=== PATIENT | male | born 1980 | race Caucasian/White ===

== ENCOUNTER 2021-05-03 08:58 | Outpatient (REF) | payer OTHER, SELFPAY ==
[2021-05-03 09:19] LABS: MANUAL DIFF FLAG NO
[2021-05-03 10:03] LABS: Basophils Percent Auto 0.4 % (0-2); Eosinophils Absolute Auto 0.2 X10*3/uL (0.0-0.4); Hematocrit 47.7 % (42.0-52.0); Hemoglobin 15.4 g/dl (14.0-18.0); Imm Gran Abs Auto 0.02 X10*3/uL (0.00-0.03); Imm Gran Pct Auto 0.4 % (0.0-0.4); Lymphocytes Absolute Auto 1.4 X10*3/uL (1.2-4.9); Lymphocytes Percent Auto 30.3 % (20-40); Mean Corpuscular HGB Conc 32.3 g/dl (31.0-36.0); Mean Corpuscular Hemoglobin 28.3 pg (27.0-33.0); Mean Corpuscular Volume 87.7 fL (80.0-98.0); Mean Platelet Volume 8.6 fL (9.4-12.4); Monocytes Absolute Auto 0.4 X10*3/uL (0.1-1.2); Monocytes Percent Auto 8.5 % (2-11); Neutrophils Absolute Auto 2.5 x10*3/uL (2.0-8.3); Neutrophils Percent Auto 55.4 % (45-73); Platelet Count 223 X10*3/uL (160-400); Red Blood Count 5.44 X10*6/uL (4.60-5.80); Red Cell Distribution Width 12.8 % (11.0-16.0); White Blood Count 4.6 X10*3/uL (4.8-10.8)
[2021-05-03 10:28] LABS: Alanine Aminotransferase 33 U/L (0-40); Albumin Level 4.4 g/dL (3.5-5.0); Alkaline Phosphatase 67 U/L (39-117); Anion Gap 9 (12-20); Aspartate Amino Transferase 15 U/L (5-37); Bilirubin Total 1.2 mg/dL (0.0-1.0); Blood Urea Nitrogen 9 mg/dL (9-16); Calcium 9.7 mg/dL (8.4-10.2); Carbon Dioxide 30 mmol/L (22-29); Chloride 106 mmol/L (96-108); Cholesterol 156 mg/dL; Estimated Glomerular Filt Rate > 60; Glucose Random 91 mg/dL (60-115); HDL Cholesterol 37 mg/dL; LDL Cholesterol Calculated 102 mg/dl; Potassium 4.3 mmol/L (3.3-5.1); Sodium 141 mmol/L (135-145); Total Protein 7.2 g/dL (6.5-8.0); Triglycerides 89 mg/dL
[2021-05-03 10:46] LABS: Thyroid Stimulating Hormone 1.44 uIU/mL (0.32-4.0); Vitamin D 25-OH Total 15.9 ng/mL (>30)
== END 2021-05-03 08:59 | disposition home or self-care (01) ==
LOC: HO.LAB 08:58
PROVIDERS: PCP Internal Medicine; Visit Provider Internal Medicine
DX: Z00.00 Encounter for general adult medical examination without abnormal findings (principal); Z13.29 Encounter for screening for other suspected endocrine disorder; Z13.220 Encounter for screening for lipoid disorders
CPT/HCPCS: 36415; 80053; 80061; 82306; 84443; 85025

== ENCOUNTER 2022-08-23 08:29 | Emergency (ER) | payer OTHER, SELFPAY ==
--- NOTE | ~2022-08-23 | CT_ITS ---
EXAMINATION: CT ABDOMEN AND PELVIS WITH CONTRAST CLINICAL INFORMATION: Left lower quadrant pain COMPARISON: None available. TECHNIQUE: Multidetector volumetric images were obtained from the superior aspect of the liver through the pubic symphysis following administration 85 mL of Omnipaque 350 intravenous contrast. Sagittal and coronal reformatted images were obtained on the technologist's workstation. Oral contrast: Yes This CT examination was performed using dose optimization techniques as appropriate, variously including the following: *Automated exposure control *Adjustment of mA and/or kV according to patient size (this includes techniques or standardized protocols for targeted exams where dose is matched to indication/reason for exam; i.e. extremities or head) *Use of iterative reconstruction technique DLP: 506 mGy-cm FINDINGS: LUNG BASES: The visualized lung bases are unremarkable. LIVER, GALLBLADDER, AND BILIARY TREE: The liver is normal in size, shape, and attenuation. No focal hepatic lesion or biliary ductal dilatation is present. The gallbladder is unremarkable with no evidence of radiopaque gallstones, gallbladder wall thickening, or obvious pericholecystic inflammatory changes. PANCREAS: Unremarkable. SPLEEN: Unremarkable. ADRENAL GLANDS: Unremarkable. KIDNEYS AND URETERS: Left hydronephrosis and ureteral dilatation from a 4 mm left distal ureteral stone. There is some stranding of the left perinephric fat probably due to obstruction/backflow of urine. Differential would include infection. There is a 3 mm stone in the upper pole and a 1 mm stone in the lower pole of the right kidney. BLADDER: Unremarkable. GASTROINTESTINAL TRACT: Mild diverticulosis of the colon. No evidence of diverticulitis. The small and large bowel are otherwise unremarkable. The appendix is unremarkable. ABDOMINAL WALL: Small umbilical and supraumbilical hernias containing fat. LYMPH NODES: Normal. VASCULAR: Unremarkable. PELVIC VISCERA: Unremarkable. OSSEOUS STRUCTURES: Unremarkable. CT/CT abdomen pelvis w IV con IMPRESSION: Mild to moderate left hydronephrosis and ureteral dilatation from a 4 mm left distal ureteral stone. There is stranding of the left perinephric fat. This may be secondary to obstruction/backflow of urine. Differential would include infection. Clinical correlation recommended. Small nonobstructing right renal stones. Fleischner guidelines were followed.
[2022-08-23 08:37] VITALS: BP 150/90; PULSE 70; RESP 20; TEMP 36.6; O2SAT 99; BMI 25.5
--- NOTE | 2022-08-23 08:45 | ED.ABDPAIN ---
HPI - Abdominal Pain General Chief Complaint: Abdominal Pain Stated Complaint: Stomach Pain Vomiting Time Seen by Provider: 08/23/22 08:32 Source: patient and family Mode of arrival: ambulatory Limitations: no limitations History of Present Illness HPI narrative: 42 yo male with no significant medial history presents to the ER for evaluation acute onset of severe left lower quadrant abdominal pain along with nausea and vomiting that started at 05:30 this morning. He states the pain woke him up out of sleep. He states he has been having an upset stomach this week, taking Pepcid and Pepto-Bismol. The pain has not been as severe as it is today. He has never had pain like this before. He states he had a normal BM today, although smaller than normal. No diarrhea. He had some BRBPR 3 days ago with wiping. No history of GIB in the last. No hx hemorrhoids. MD elicited complaint: abdominal pain Pertinent past history: none Onset (ago): hour(s) (4) Pain Consistency: constant Location: LLQ Severity: severe Pain scale (0-10): 10 Quality: stabbing and sharp Radiation: none Migration to: no migration Exacerbating factors: nothing Relieving factors: nothing Associated symptoms: nausea, vomiting and chills Related Data Previous Rx's Medication Instructions Recorded ibuprofen 600 mg tablet 600 mg PO Q8H PRN pain #20 tabs 08/23/22 ondansetron 4 mg disintegrating 4 mg PO Q8H PRN nausea and 08/23/22 tablet vomiting #10 tabs oxycodone 5 mg tablet 5 mg PO Q6H PRN severe pain (scale 08/23/22 score 7-10) #8 tabs prednisone 20 mg tablet 40 mg PO DAILY #6 tabs 08/23/22 tamsulosin 0.4 mg capsule (Flomax) 0.4 mg PO BEDTIME #14 caps 08/23/22 Allergies Allergy/AdvReac Type Severity Reaction Status Date / Time No Known Allergies Allergy Verified 08/23/22 08:40 Review of Systems Review of Systems Yes all other systems are reviewed and are negative [facility] Past Medical History Medical History (Updated 08/23/22 @ 10:55 by EDMUND Kebede) Asthma Kidney stones Social History Social History Alcohol intake: former Smoked in Last 30 Days: No Use of substances other than those prescribed or required for medical reasons: Yes Substance Use Type: Marijuana Advance Directives: No Advance Directives Information Provided: Yes Physical Exam ED Vital Signs: Vital Signs - 24 hr 08/23/22 08:37 08/23/22 11:17 Temperature 97.9 F Pulse Rate 70 87 Respiratory Rate 20 18 Blood Pressure 150/90 H 128/82 Pulse Oximetry 99 97 Oxygen Delivery Method Room Air Room Air BMI result Body Mass Index 25.5 Appearance: Alert. Oriented X3. Hunched over in pain, pale Head: normocephalic, atraumatic. Eyes: Pupils equal, round and reactive to light. ENT: Pharynx normal. No tonsillar swelling or exudate. Neck: Normal inspection. Neck supple. CVS: Normal heart rate and rhythm. Pulses normal. Respiratory: No respiratory distress. Breath sounds normal. Abdomen: Soft but has LLQ tenderness with guarding, normal active BS x4. Rectal deferred Skin: Skin warm and dry. Normal skin color. Normal skin turgor. No rashes. Extremities: No lower extremity edema. No joint swelling. Neuro/psych: Oriented X 3. No motor deficit. No sensory deficit. CN II-XII intact. Normal speech and cognition. Course Reevaluation(s) Reevaluation #1: Abdominal pain significantly improved with morphine and Dilaudid. Patient stated 0/10. Mild discomfort to palpation at LLQ Time: 10:35 Medical Decision Making Medical Decision Making [facility] Narrative: 42 yo male presenting with acute onset of severe LLQ pain that started this morning. He is vomiting on arrival, pale and in severe pain. Concern for diverticulitis, perforation vs stone initially very extreme tenderness. Labs were unremarkable. CT scan showed a 4mm distal ureteral stone with mild-moderate hydro. His pain is resolved after 2 doses of IV opiates. He does report history of kidney stone several years ago, does not have a Urologist. Will plan to start pain control, flomax, steroids and have him follow up with urology as an outpatient. patient agrees w/ plan, return precautions discussed. stable for d/c home. Differential Diagnosis Differential Diagnoses: The differential diagnosis associated with the presentation includes diverticulitis, abscess, bowel perforation, kidney stone, pyelonephritis, UTI, ischemic colitis Lab Data [facility] Lab Attestation statement: I reviewed the patient's lab results. normal kidnye function, no leukocytosis 08/23/22 08:51 08/23/22 08:51 Labs: Lab Results 08/23/22 08/23/22 08/23/22 Range/Units 08:51 08:51 11:18 WBC 7.8 (4.8-10.8) X10*3/uL RBC 5.34 (4.60-5.80) X10*6/uL Hgb 15.5 (14.0-18.0) g/dl Hct 45.2 (42.0-52.0) % MCV 84.6 (80.0-98.0) fL MCH 29.0 (27.0-33.0) pg MCHC 34.3 (31.0-36.0) g/dl RDW 12.6 (11.0-16.0) % Plt Count 208 (160-400) X10*3/uL MPV 8.3 L (9.4-12.4) fL Immature Gran % (Auto) 0.4 (0.0-0.4) % Neut % (Auto) 78.9 H (45-73) % Lymph % (Auto) 13.0 L (20-40) % [place] % (Auto) 5.5 (2-11) % Eos % (Auto) 1.7 (0-4) % Baso % (Auto) 0.5 (0-2) % Lymph # (Auto) 1.0 L (1.2-4.9) X10*3/uL [place] # (Auto) 0.4 (0.1-1.2) X10*3/uL Eos # (Auto) 0.1 (0.0-0.4) X10*3/uL Baso # (Auto) 0.0 (0.0-0.2) X10*3/uL Abs Immat Gran (auto) 0.03 (0.00-0.03) X10*3/uL Absolute Neuts (auto) 6.1 (2.0-8.3) x10*3/uL Absolute Nucleated RBC 0.000 (0.0-0.012) X10*3/uL Nucleated RBC % (auto) 0.0 (0.0-0.2) /100WBC Sodium 140 (135-145) mmol/L Potassium 4.2 (3.3-5.1) mmol/L Chloride 106 (96-108) mmol/L Carbon Dioxide 27 (22-29) mmol/L Anion Gap 11 L (12-20) BUN 13 (9-16) mg/dL Creatinine 1.06 (0.5-1.4) mg/dL Estim Creat Clear Calc 90.7 Estimated GFR > 60 Random Glucose 130 H (60-115) mg/dL Calcium 9.4 (8.4-10.2) mg/dL Magnesium 2.1 (1.6-2.6) mg/dL Total Bilirubin 0.8 (0.0-1.0) mg/dL Direct Bilirubin 0.2 (0.0-0.5) mg/dL AST 14 (5-37) U/L ALT 23 (0-40) U/L Alkaline Phosphatase 51 (39-117) U/L Total Protein 6.7 (6.5-8.0) g/dL Albumin 4.3 (3.5-5.0) g/dL Lipase 24 (8-78) U/L Urine Color Yellow Urine Appearance Clear Urine pH 7.5 (5.0-9.0) Ur Specific [place] >= 1.030 H (1.005-1.025) Urine Protein Negative (Neg-Trace) mg/dL Urine Glucose (UA) Negative (Negative) mg/dL Urine Ketones Negative (Negative) mg/dL Urine Blood Moderate (2+) H (Negative) Urine Nitrite Negative (Negative) Ur Leukocyte Esterase Negative (Negative) Independent Interpretation I performed an independent interpretation of an: CT Scan Interpretation: CT scan with a distal ureteral stone, moderate hydronephrosis. Radiology Impression Discussion of test interpretation with radiology: I have reviewed the radiologist's reading. Radiologist Impression: CT/CT abdomen pelvis w IV con IMPRESSION: Mild to moderate left hydronephrosis and ureteral dilatation from a 4 mm left distal ureteral stone. There is stranding of the left perinephric fat. This may be secondary to obstruction/backflow of urine. Differential would include infection. Clinical correlation recommended. Small nonobstructing right renal stones. Independent Historian Clinical information obtained from an independent historian. History obtained from or confirmed by: Spouse Prescription Management I considered prescription management with: Pain Medication Medications Administered Discontinued Medications Generic Name Dose Route Start Last Admin Trade Name Freq PRN Reason Stop Dose Admin Hydromorphone HCl 1 mg 08/23/22 09:23 08/23/22 09:34 Hydromorphone Hcl 1 Mg/Ml Syringe IVPUSH 08/23/22 09:24 1 mg ONCE ONE Administration Protocol Sodium Chloride 1,000 mls @ 999 mls/hr 08/23/22 08:45 08/23/22 11:22 Ns IVCONT 08/23/22 09:45 Infused .Q1H1M NOHELIA Infusion Iohexol 85 ml 08/23/22 09:58 08/23/22 09:59 Iohexol 350 Mg/Ml 100 Ml Infus..Btl IV 08/23/22 09:59 85 ml ONCE ONE Administration Morphine Sulfate 4 mg 08/23/22 08:42 08/23/22 08:56 Morphine Sulfate 4 Mg/Ml Cartridge IVPUSH 08/23/22 08:43 4 mg ONCE ONE Administration Protocol Ondansetron HCl 4 mg 08/23/22 08:42 08/23/22 08:55 Ondansetron Hcl 4 Mg/2 Ml Vial IVPUSH 08/23/22 08:43 4 mg ONCE ONE Administration Critical Care Time Critical Care Time Critical Care Time: Yes Total Critical Care Time: 35 Attestation: I have personally provided critical care time exclusive of time spent on separately billable procedures. Time includes review of lab data, radiology results, multiple doses of IV meds and frequent bedside reassessments, and monitoring for potential decompensation. Intervention performed as documented. Discharge Plan Discharge Clinical Impression: Hydronephrosis with ureteral calculus Patient Disposition: Home, Self-Care Instructions: Hydronephrosis (ED), Ureteral Stones (ED) Additional Instructions: Your CT scan showed a 4mm ureteral stone in the lower portion of your ureter. Take the prescribed medications as directed to help you pass the stone at home. Follow up with Urology. Name and number below, call for an appointment If you develop new or worsening symptoms call 911 or come back to the ER for further evaluation. Prescriptions: New prednisone 20 mg tablet 40 mg PO DAILY Qty: 6 0RF ibuprofen 600 mg tablet 600 mg PO Q8H PRN (Reason: pain) Qty: 20 0RF tamsulosin [Flomax] 0.4 mg capsule 0.4 mg PO BEDTIME Qty: 14 0RF ondansetron 4 mg tablet,disintegrating 4 mg PO Q8H PRN (Reason: nausea and vomiting) Qty: 10 0RF oxycodone 5 mg tablet 5 mg PO Q6H PRN (Reason: severe pain (scale score 7-10)) Qty: 8 0RF Rx Instructions: Partial Fill upon patient request. Referrals: [facility] [Provider Group] (4mm distal ureteral stone w/ hydro)
[2022-08-23 08:55] LABS: MANUAL DIFF FLAG NO
[2022-08-23] MEDS: ondansetron HCL 4 MG/2 ML VIAL IVPUSH (08:55)
[2022-08-23] MEDS: Morphine Sulfate 4 MG/ML CARTRIDGE IVPUSH (08:56)
[2022-08-23 08:57] LABS: Basophils Percent Auto 0.5 % (0-2); Eosinophils Absolute Auto 0.1 X10*3/uL (0.0-0.4); Eosinophils Percent Auto 1.7 % (0-4); Hematocrit 45.2 % (42.0-52.0); Hemoglobin 15.5 g/dl (14.0-18.0); Imm Gran Abs Auto 0.03 X10*3/uL (0.00-0.03); Imm Gran Pct Auto 0.4 % (0.0-0.4); Mean Corpuscular HGB Conc 34.3 g/dl (31.0-36.0); Mean Corpuscular Volume 84.6 fL (80.0-98.0); Mean Platelet Volume 8.3 fL (9.4-12.4); Monocytes Absolute Auto 0.4 X10*3/uL (0.1-1.2); Monocytes Percent Auto 5.5 % (2-11); Neutrophils Absolute Auto 6.1 x10*3/uL (2.0-8.3); Neutrophils Percent Auto 78.9 % (45-73); Platelet Count 208 X10*3/uL (160-400); Red Blood Count 5.34 X10*6/uL (4.60-5.80); Red Cell Distribution Width 12.6 % (11.0-16.0); White Blood Count 7.8 X10*3/uL (4.8-10.8)
[2022-08-23] MEDS: 0.9 % Sodium Chloride 1,000 ML 999 ML IVCONT (08:59)
--- NOTE | 2022-08-23 09:02 | PC.NURSE ---
pt AOx3, 02/18 LLQ pain since this morning. N/V denies SOB. Fluids running, medicated per JUL. will cont to nayely
[2022-08-23 09:13] LABS: Alanine Aminotransferase 23 U/L (0-40); Albumin Level 4.3 g/dL (3.5-5.0); Alkaline Phosphatase 51 U/L (39-117); Anion Gap 11 (12-20); Aspartate Amino Transferase 14 U/L (5-37); Bilirubin Direct 0.2 mg/dL (0.0-0.5); Bilirubin Total 0.8 mg/dL (0.0-1.0); Blood Urea Nitrogen 13 mg/dL (9-16); Calcium 9.4 mg/dL (8.4-10.2); Carbon Dioxide 27 mmol/L (22-29); Chloride 106 mmol/L (96-108); Creatinine Clr Calc Pharmacy 90.7; Estimated Glomerular Filt Rate > 60; Glucose Random 130 mg/dL (60-115); Lipase 24 U/L (8-78); Magnesium 2.1 mg/dL (1.6-2.6); Potassium 4.2 mmol/L (3.3-5.1); Sodium 140 mmol/L (135-145); Total Protein 6.7 g/dL (6.5-8.0)
[2022-08-23] MEDS: HYDROmorphone HCl 1 MG/ML SYRINGE IVPUSH (09:34)
--- NOTE | 2022-08-23 09:40 | PC.NURSE ---
pt continues to report 10/10 pain. given Dilaudid per order, pt reporting a decrease in pain. awaiting CT scan
[2022-08-23] MEDS: iohexoL 350 MG/ML 100 ML INFUS..BTL 85 ML IV (09:59)
[2022-08-23 11:17] VITALS: BP 128/82; PULSE 87; RESP 18; O2SAT 97
--- NOTE | 2022-08-23 11:20 | PC.NURSE ---
pt pain has significantly improved reporting 0/10 pain. urine sent to lab
[2022-08-23 11:32] LABS: Appearance Urine Clear; Color Urine Yellow; Glucose Urine UA Negative (Negative); Leukocyte Esterase Urine Negative (Negative); Nitrite Urine Negative (Negative); PH 7.5 (5.0-9.0); Specific Gravity - Urine >= 1.030 (1.005-1.025); UMIC TRIGGER UACC YES; Urine Blood Moderate (2+) (Negative); Urine Ketones Negative (Negative); Urine Protein Negative (Neg-Trace)
[2022-08-23 11:34] LABS: Bacteria Urine None Seen (None Seen); Hyaline Casts Urine 0-2 /LPF (0-2); RBC Urine >20 /HPF (0-2); Squamous Epithelial Cell Urine 0-2 /HPF (0-2); WBC Urine 0-5 /HPF (0-5)
[2022-08-23 11:58] LABS: Amphetamine Screen Urine Not Detected (Not Detect); Barbiturates, Urine Not Detected (Not Detect); Benzodiazepines Screen Urine Not Detected (Not Detect); Cannabinoid Screen Urine POSITIVE (Not Detect); Cocaine Screen Urine Not Detected (Not Detect); Fentanyl, urine Not Detected (Not Detect); Opiate Screen Urine POSITIVE (Not Detect); Phencyclidine Screen Urine Not Detected (Not Detect)
== END 2022-08-23 11:58 | disposition home or self-care (01) ==
PROVIDERS: Physician Assistant; Emergency Provider Emergency Medicine; PCP Internal Medicine
DX: N13.2 Hydronephrosis with renal and ureteral calculous obstruction (principal); R10.32 Left lower quadrant pain; R11.2 Nausea with vomiting, unspecified; F12.90 Cannabis use, unspecified, uncomplicated; Z79.899 Other long term (current) drug therapy
CPT/HCPCS: 36415; 74177; 80048; 80076; 80307; 81001; 83690; 83735; 85025; 96361; 96374; 96375; 99284; J1170; J2270; J2405; Q9967

== ENCOUNTER → 2022-09-11 08:28 | Outpatient (BNVA) | payer OTHER, SELFPAY | PROVIDERS: PCP Internal Medicine; Visit Provider Nurse Practitioner Family | DX: Z13.89 Encounter for screening for other disorder (principal) ==

== ENCOUNTER 2022-09-30 08:29 | Outpatient (REF) | payer OTHER, SELFPAY ==
--- NOTE | ~2022-09-30 | US_ITS ---
EXAMINATION: US RETROPERITONEAL LIMITED (RENAL ONLY) CLINICAL INFORMATION: Calculus of kidney. COMPARISON: CT abdomen and pelvis with contrast dated 08/23/2022. TECHNIQUE: Real-time imaging of the kidneys. FINDINGS: RIGHT KIDNEY: 10.0 x 5.7 x 5.7 cm (SAG x AP x TRV). The kidney is normal in size, contour, and echogenicity. Renal cortical thickness is normal. No calculi or focal parenchymal lesions. No hydronephrosis. LEFT KIDNEY: 11.0 x 5.8 x 5.5 cm (SAG x AP x TRV). The kidney is normal in size, contour, and echogenicity. Renal cortical thickness is normal. No calculi or focal parenchymal lesions. No hydronephrosis. US/US renal BI IMPRESSION: Unremarkable renal ultrasound.
== END 2022-09-30 08:30 | disposition home or self-care (01) ==
LOC: HO.US 08:29
PROVIDERS: PCP Internal Medicine; Visit Provider Nurse Practitioner Family
DX: N20.0 Calculus of kidney (principal)
CPT/HCPCS: 76775

== ENCOUNTER 2022-10-08 02:38 | Emergency (ER) | payer OTHER, SELFPAY ==
--- NOTE | ~2022-10-08 | CT_ITS ---
EXAMINATION: CT ABDOMEN AND PELVIS WITHOUT CONTRAST CLINICAL INFORMATION: Right flank pain with history of stone COMPARISON: 08/23/2022 TECHNIQUE: Multidetector volumetric imaging was performed from the superior aspect of the liver through the pubic symphysis. Sagittal and coronal reformatted images were obtained on the technologist's workstation. This CT examination was performed using dose optimization techniques as appropriate, variously including the following: *Automated exposure control *Adjustment of mA and/or kV according to patient size (this includes techniques or standardized protocols for targeted exams where dose is matched to indication/reason for exam; i.e. extremities or head) *Use of iterative reconstruction technique DLP: 504 mGy-cm FINDINGS: LUNG BASES: The visualized lung bases are unremarkable. LIVER, GALLBLADDER, AND BILIARY TREE: The liver is normal in size, shape, and attenuation. No focal hepatic lesion or biliary ductal dilatation is identified on this noncontrast exam. The gallbladder is unremarkable with no evidence of radiopaque gallstones, gallbladder wall thickening, or obvious pericholecystic inflammatory changes. PANCREAS: Unremarkable. SPLEEN: Unremarkable. ADRENAL GLANDS: Unremarkable. KIDNEYS AND URETERS: There is a 3 mm calculus in the distal right ureter with mild hydronephrosis. A couple tiny calculi are noted in the right upper and lower poles. There is a 4 mm in the distal left ureter without significant hydronephrosis; this calculus is slightly more distal than on 08/23/2022. BLADDER: Nearly empty and not well evaluated. GASTROINTESTINAL TRACT: No evidence of bowel obstruction or significant wall thickening. The appendix is unremarkable. No free fluid or free air is seen. ABDOMINAL WALL: No significant hernia is appreciated. LYMPH NODES: Normal. VASCULAR: Unremarkable. PELVIC VISCERA: Unremarkable. OSSEOUS STRUCTURES: Unremarkable. CT/CT abdomen pelvis wo IV con IMPRESSION: 1. Distal right ureteral calculus measuring 3 mm with mild hydronephrosis. 2. Distal left ureteral calculus measuring 4 mm without significant hydronephrosis. This calculus is slightly more distal than on 08/23/2022.
[2022-10-08 02:47] VITALS: PULSE 76; RESP 18; O2SAT 97; BMI 22.1
[2022-10-08 02:49] VITALS: BP 129/85; PULSE 74; RESP 12; TEMP 36.6; O2SAT 97
--- NOTE | 2022-10-08 02:53 | PC.NURSE ---
pt resting on stretcher at this time. Per pt, he was at home when he got a sharp pain in his right flank into abdomen. Has hx of kidney stones and last passed one on August 21. Pt states this feels similar. Pt took two Vicodin he had at home for pain and then came to the ER. Pt also reports he vomited 3 times before arriving. Otherwise patient appears well, respirations even and unlabored, skin pwd, alert and oriented x4. Pt provided with urine cup to provide urine sample
--- NOTE | 2022-10-08 02:57 | ED.ABDPAIN ---
HPI - Abdominal Pain General Chief Complaint: Abdominal Pain Stated Complaint: Abd pain Time Seen by Provider: 10/08/22 02:57 Source: patient Mode of arrival: ambulatory Limitations: no limitations History of Present Illness HPI narrative: Patient history of kidney stones was seen here on 08/23 CT scan at that time showed 4 mm left distal ureteral stone now patient comes here for pain in the right flank area started about 45 minutes prior to arrival with nausea and vomiting Related Data Previous Rx's Medication Instructions Recorded pyridoxine (vitamin B6) 100 mg 100 mg PO DAILY 90 days #90 tabs 09/11/22 tablet oxycodone-acetaminophen 5 mg-325 1 tab PO Q6H PRN pain #20 tabs 10/08/22 mg tablet (Percocet) tamsulosin 0.4 mg capsule (Flomax) 0.4 mg PO BEDTIME #20 caps 10/08/22 Allergies Allergy/AdvReac Type Severity Reaction Status Date / Time No Known Allergies Allergy Verified 09/11/22 09:13 Review of Systems Review of Systems Yes all other systems are reviewed and are negative COUNT INCLUDES [facility] Past Medical History Medical History Asthma Kidney stones Social History Social History Alcohol intake: former Smoked in Last 30 Days: No Use of substances other than those prescribed or required for medical reasons: Yes Substance Use Type: Marijuana Substance Use Frequency: Occasionally Advance Directives: No Advance Directives Information Provided: Yes Physical Exam ED Vital Signs: Vital Signs - 24 hr 10/08/22 02:47 10/08/22 02:49 10/08/22 05:22 Temperature 97.8 F 98.1 F Pulse Rate 76 74 64 Respiratory Rate 18 12 11 L Blood Pressure 129/85 133/77 Pulse Oximetry 97 97 97 Oxygen Delivery Method Room Air Room Air Room Air BMI result Body Mass Index 22.1 Appearance: Alert. Oriented X3. In mild distress. Eyes: PERRLA, No Nystagmus ENT: Pharynx normal. Oral Mucosa moist Neck: Normal inspection. Neck supple. CVS: Normal heart rate and rhythm. Pulses normal. Respiratory: No respiratory distress. Equal air entry bilateral, no wheezing/rales/rhonchi Abdomen: Soft and nontender. Bowel sounds are present, no mass palpable, right CVA tenderness+ Skin: Skin warm and dry. Normal skin color. Normal skin turgor. Extremities: No lower extremity edema. No calf tenderness Neuro: Oriented X 3. Medical Decision Making Medical Decision Making [facility] Narrative: Patient with a right ureteric stone 3 mm with moderate hydronephrosis is feeling much better after pain medication Flomax will follow-up with urologist Lab Data [facility] Lab Attestation statement: I reviewed the patient's lab results. 10/08/22 03:15 10/08/22 03:52 Labs: Lab Results 10/08/22 10/08/22 10/08/22 Range/Units 03:15 03:52 04:54 WBC 6.7 (4.8-10.8) X10*3/uL RBC 5.05 (4.60-5.80) X10*6/uL Hgb 14.7 (14.0-18.0) g/dl Hct 42.9 (42.0-52.0) % MCV 85.0 (80.0-98.0) fL MCH 29.1 (27.0-33.0) pg MCHC 34.3 (31.0-36.0) g/dl RDW 12.8 (11.0-16.0) % Plt Count 193 (160-400) X10*3/uL MPV 9.6 (9.4-12.4) fL Immature Gran % (Auto) 0.3 (0.0-0.4) % Neut % (Auto) 61.1 (45-73) % Lymph % (Auto) 27.5 (20-40) % [place] % (Auto) 7.6 (2-11) % Eos % (Auto) 2.8 (0-4) % Baso % (Auto) 0.7 (0-2) % Lymph # (Auto) 1.9 (1.2-4.9) X10*3/uL [place] # (Auto) 0.5 (0.1-1.2) X10*3/uL Eos # (Auto) 0.2 (0.0-0.4) X10*3/uL Baso # (Auto) 0.1 (0.0-0.2) X10*3/uL Abs Immat Gran (auto) 0.02 (0.00-0.03) X10*3/uL Absolute Neuts (auto) 4.1 (2.0-8.3) x10*3/uL Absolute Nucleated RBC 0.000 (0.0-0.012) X10*3/uL Nucleated RBC % (auto) 0.0 (0.0-0.2) /100WBC Sodium 140 (135-145) mmol/L Potassium 3.7 (3.3-5.1) mmol/L Chloride 109 H (96-108) mmol/L Carbon Dioxide 23 (22-29) mmol/L Anion Gap 12 (12-20) BUN 12 (9-16) mg/dL Creatinine 0.85 (0.5-1.4) mg/dL Estim Creat Clear Calc 108.9 Estimated GFR > 60 Random Glucose 113 (60-115) mg/dL Calcium 8.7 D (8.4-10.2) mg/dL Urine Color Dark Yellow Urine Appearance Turbid Urine pH 5.5 (5.0-9.0) Ur Specific [place] >= 1.030 H (1.005-1.025) Urine Protein 100 (2+) H (Neg-Trace) mg/dL Urine Glucose (UA) Negative (Negative) mg/dL Urine Ketones Trace (Negative) mg/dL Urine Blood Large (3+) H (Negative) Urine Nitrite Negative (Negative) Ur Leukocyte Esterase Trace H (Negative) Urine RBC >20 H (0-2) /HPF Urine WBC 0-5 (0-5) /HPF Ur Squamous Epith Cells 0-2 (0-2) /HPF Urine Bacteria None Seen (None Seen) Hyaline Casts 6-10 (0-2) /LPF Medications Administered Discontinued Medications Generic Name Dose Route Start Last Admin Trade Name Freq PRN Reason Stop Dose Admin Hydromorphone HCl 1 mg 10/08/22 03:46 10/08/22 03:52 Hydromorphone Hcl 1 Mg/Ml Syringe IVPUSH 10/08/22 03:47 1 mg ONCE ONE Administration Protocol Sodium Chloride 1,000 mls @ 999 mls/hr 10/08/22 02:57 10/08/22 04:38 Ns IV 10/08/22 03:57 Infused .Q1H1M ONE Infusion Ketorolac Tromethamine 30 mg 10/08/22 02:57 10/08/22 03:20 Ketorolac Tromethamine 30 Mg/Ml Vial IVPUSH 10/08/22 02:58 30 mg ONCE ONE Administration Morphine Sulfate 4 mg 10/08/22 02:57 10/08/22 03:20 Morphine Sulfate 4 Mg/Ml Cartridge IVPUSH 10/08/22 02:58 4 mg ONCE ONE Administration Protocol Ondansetron HCl 4 mg 10/08/22 02:57 10/08/22 03:21 Ondansetron Hcl 4 Mg/2 Ml Vial IVPUSH 10/08/22 02:58 4 mg ONCE ONE Administration Oxycodone HCl 10 mg 10/08/22 06:10 10/08/22 06:27 Oxycodone Hcl Immed Release 5 Mg Tablet PO 10/08/22 06:11 10 mg ONCE ONE Administration Tamsulosin HCl 0.4 mg 10/08/22 04:47 10/08/22 04:58 Tamsulosin Hcl 0.4 Mg Capsule PO 10/08/22 04:48 0.4 mg ONCE ONE Administration Discharge Plan Discharge Clinical Impression: Kidney stones Patient Disposition: Home, Self-Care Instructions: Kidney Stones (ED) Additional Instructions: Take pain medication and Flomax as prescribed See urologist for follow-up Prescriptions: New oxycodone-acetaminophen [Percocet] 5-325 mg tablet 1 tab PO Q6H PRN (Reason: pain) Qty: 20 0RF Rx Instructions: Partial Fill upon patient request. tamsulosin [Flomax] 0.4 mg capsule 0.4 mg PO BEDTIME Qty: 20 0RF No Action pyridoxine (vitamin B6) 100 mg tablet 100 mg PO DAILY 90 Days Qty: 90 3RF Referrals: Kieran Howard MD [Physician] - 1 week Interventions: ED Discharge Assessment Last Done: 10/08/22 06:35 Discharge Date/Time: 10/08/22 06:36
[2022-10-08 03:19] LABS: Hemoglobin 14.7 g/dl (14.0-18.0); Imm Gran Abs Auto 0.02 X10*3/uL (0.00-0.03); Imm Gran Pct Auto 0.3 % (0.0-0.4); Mean Corpuscular HGB Conc 34.3 g/dl (31.0-36.0); PLT CLUMP 1; SCAN SMEAR FLAG 1
[2022-10-08] MEDS: Ketorolac Tromethamine 30 MG/ML VIAL IVPUSH (03:20)
[2022-10-08] MEDS: Morphine Sulfate 4 MG/ML CARTRIDGE IVPUSH (03:20)
[2022-10-08 03:21] LABS: Basophils Absolute Auto 0.1 X10*3/uL (0.0-0.2); Basophils Percent Auto 0.7 % (0-2); Eosinophils Absolute Auto 0.2 X10*3/uL (0.0-0.4); Eosinophils Percent Auto 2.8 % (0-4); Hematocrit 42.9 % (42.0-52.0); Lymphocytes Absolute Auto 1.9 X10*3/uL (1.2-4.9); Lymphocytes Percent Auto 27.5 % (20-40); Mean Corpuscular Hemoglobin 29.1 pg (27.0-33.0); Mean Platelet Volume 9.6 fL (9.4-12.4); Monocytes Absolute Auto 0.5 X10*3/uL (0.1-1.2); Monocytes Percent Auto 7.6 % (2-11); Neutrophils Absolute Auto 4.1 x10*3/uL (2.0-8.3); Neutrophils Percent Auto 61.1 % (45-73); Red Blood Count 5.05 X10*6/uL (4.60-5.80); Red Cell Distribution Width 12.8 % (11.0-16.0)
[2022-10-08] MEDS: 0.9 % Sodium Chloride 1,000 ML 999 ML IV (03:21)
[2022-10-08] MEDS: ondansetron HCL 4 MG/2 ML VIAL IVPUSH (03:21)
[2022-10-08 03:22] LABS: MANUAL DIFF FLAG NO; White Blood Count 6.7 X10*3/uL (4.8-10.8)
[2022-10-08 03:37] LABS: Platelet Count 193 X10*3/uL (160-400)
[2022-10-08] MEDS: HYDROmorphone HCl 1 MG/ML SYRINGE IVPUSH (03:52)
[2022-10-08 04:15] LABS: Anion Gap 12 (12-20); Blood Urea Nitrogen 12 mg/dL (9-16); Calcium 8.7 mg/dL (8.4-10.2); Carbon Dioxide 23 mmol/L (22-29); Chloride 109 mmol/L (96-108); Creatinine Clr Calc Pharmacy 108.9; Estimated Glomerular Filt Rate > 60; Glucose Random 113 mg/dL (60-115); Potassium 3.7 mmol/L (3.3-5.1); Sodium 140 mmol/L (135-145)
[2022-10-08] MEDS: Tamsulosin HCL 0.4 MG CAPSULE PO (04:58)
[2022-10-08 05:00] LABS: Appearance Urine Turbid; Color Urine Dark Yellow; Glucose Urine UA Negative (Negative); Leukocyte Esterase Urine Trace (Negative); Nitrite Urine Negative (Negative); PH 5.5 (5.0-9.0); Specific Gravity - Urine >= 1.030 (1.005-1.025); UMIC TRIGGER UACC YES; Urine Blood Large (3+) (Negative); Urine Ketones Trace mg/dL (Negative); Urine Protein 100 (2+) mg/dL (Neg-Trace)
[2022-10-08 05:08] LABS: Bacteria Urine None Seen (None Seen); RBC Urine >20 /HPF (0-2); Squamous Epithelial Cell Urine 0-2 /HPF (0-2); WBC Urine 0-5 /HPF (0-5)
[2022-10-08 05:22] VITALS: BP 133/77; PULSE 64; RESP 11; TEMP 36.7; O2SAT 97
[2022-10-08] MEDS: oxyCODONE HCl Immed Release 5 MG TABLET 10 MG PO (06:27)
== END 2022-10-08 06:36 | disposition home or self-care (01) ==
PROVIDERS: Emergency Provider Internal Medicine; PCP Internal Medicine
DX: N13.2 Hydronephrosis with renal and ureteral calculous obstruction (principal); R11.2 Nausea with vomiting, unspecified
CPT/HCPCS: 36415; 74176; 80048; 81001; 85025; 96361; 96374; 96375; 99284; 99285; J1170; J1885; J2270; J2405

== ENCOUNTER → 2022-10-15 08:31 | Outpatient (BNVA) | payer OTHER, SELFPAY | PROVIDERS: PCP Internal Medicine; Visit Provider Nurse Practitioner Family ==

== ENCOUNTER 2022-10-22 13:09 | Outpatient (REF) | payer OTHER, SELFPAY ==
--- NOTE | ~2022-10-22 | US_ITS ---
EXAMINATION: US RETROPERITONEAL LIMITED (RENAL ONLY) CLINICAL INFORMATION: Calculus of kidney. COMPARISON: None available. TECHNIQUE: Routine grayscale imaging of kidneys is performed FINDINGS: RIGHT KIDNEY: 10.3 x 5.9 x 5.5 cm (SAG x AP x TRV). The kidney is normal in size, contour, and echogenicity. Renal cortical thickness is normal. No calculi or focal parenchymal lesions. No hydronephrosis. LEFT KIDNEY: 11.8 x 5.9 x 6.1 cm (SAG x AP x TRV). The kidney is normal in size, contour, and echogenicity. Renal cortical thickness is normal. No calculi or focal parenchymal lesions. No hydronephrosis. US/US renal BI IMPRESSION: Unremarkable renal ultrasound.
== END 2022-10-22 13:10 | disposition home or self-care (01) ==
LOC: HO.US 13:09
PROVIDERS: PCP Internal Medicine; Visit Provider Nurse Practitioner Family
DX: N20.0 Calculus of kidney (principal)
CPT/HCPCS: 76775

== ENCOUNTER 2022-11-01 09:14 | Outpatient (REF) | payer OTHER, SELFPAY ==
[2022-11-08 19:58] LABS: Stone Source KIDNEY STONE
== END 2022-11-01 09:15 | disposition home or self-care (01) ==
LOC: HO.LNP 09:14
PROVIDERS: PCP Internal Medicine; Visit Provider Nurse Practitioner Family
DX: N20.0 Calculus of kidney (principal)
CPT/HCPCS: 82365; 88300

== ENCOUNTER 2023-04-11 07:55 | Outpatient (REF) | payer OTHER, SELFPAY ==
--- NOTE | ~2023-04-11 | US_ITS ---
EXAMINATION: US RETROPERITONEAL LIMITED (RENAL ONLY) CLINICAL INFORMATION: Calculus of kidney. COMPARISON: Renal ultrasound 10/22/2022 TECHNIQUE: Real-time imaging of the kidneys. FINDINGS: RIGHT KIDNEY: 10.4 x 5.8 x 6.0 cm (SAG x AP x TRV). The kidney is normal in size, contour, and echogenicity. Renal cortical thickness is normal. No focal parenchymal lesions or hydronephrosis. 6 mm nonobstructing lower pole renal stone from prior. LEFT KIDNEY: 11.5 x 5.1 x 5.8 cm (SAG x AP x TRV). The kidney is normal in size, contour, and echogenicity. Renal cortical thickness is normal. No calculi or focal parenchymal lesions. Pelviectasis without ben hydronephrosis new from prior. US/US renal BI IMPRESSION: 1. A 6 mm nonobstructing right lower pole renal stone from prior. 2. Left renal pelviectasis without ben hydronephrosis new from prior.
== END 2023-04-11 07:56 | disposition home or self-care (01) ==
LOC: HO.US 07:55
PROVIDERS: PCP Internal Medicine; Visit Provider Nurse Practitioner Family
DX: N20.0 Calculus of kidney (principal)
CPT/HCPCS: 76775

== ENCOUNTER 2023-04-23 08:25 | Outpatient (AMB) | payer OTHER, SELFPAY ==
--- NOTE | 2023-04-23 08:33 | MHC.OFFVIS ---
Intake Intake Visit Reasons: 6m/US(set) Intake Note: Patient is present for follow up kidney stone/ultrasound (imaging 04/11/23) Urology Medications: none Blood Thinner: none Sweater Operator Required: No Accompanied by: Self / Same As Patient Allergies No Known Allergies Allergy (Verified 04/23/23 10:23) Medication List - Last Reconciled 04/23/23 by ALTAF Lino pyridoxine (vitamin B6) 100 mg PO DAILY 90 days HPI HPI Comments History of Present Illness Details Tanner is a pleasant 42-year-old male patient of Dr. Flores. He has a past medical history of nephrolithiasis and asthma. He presents to the office today for a follow up of his nephrolithiasis. In discussion with the patient today he reports to be doing and feeling well. Recent renal imaging results reviewed with the patient today. A 6 mm nonobstructing right lower pole renal stone is noted. Left renal pelviectasis without ben hydronephrosis. When asked patient denies any bothersome urinary issues or concerns. He denies urinary urgency, urinary frequency, incontinence, nocturia, hematuria, dysuria, foul smelling urine, changes to urinary stream, flank pain, fever, and or chills. He is happy with his current voiding parameters. When asked he reports to be drinking plenty of water daily. He continues compliance with vitamin B6. However, has recently ran out and is requesting a refill. Discussed at length further nephrolithiasis workup with 24 hour collection, labs as well as CT KUB however patient declines at this time. Will continue with color television console monitor. In office urinalysis results reviewed with the patient today. He otherwise offers no issues or concerns at this time. [facility] Medical History Asthma Kidney stones Social History Alcohol intake: former Substance Use Type: Marijuana Review of Systems Const All systems reviewed & are unremarkable except as noted in HPI and below Reports no additional complaints Eyes Reports no additional complaints ENT Reports no additional complaints Card Reports no additional complaints Resp Reports as per HPI GI Reports no additional complaints Reports as per HPI Musc Reports no additional complaints Neuro Reports no additional complaints Psych Reports no additional complaints Endo Reports no additional complaints Memo/Lymph Reports no additional complaints Aller/Immun Reports no additional complaints Physical Exam Const General: cooperative, healthy appearing, comfortable, no acute distress, well developed, alert and awake Orientation/consciousness: patient oriented x3 Limitations: no limitations HEENT Head: Yes normal to inspection, Yes normocephalic and Yes atraumatic Ears: hearing grossly normal bilaterally Eyes General: appearance normal, both eyes and all related structures Neck Neck: Yes normal visual inspection and Yes trachea midline Chest Chest palpation & inspection: normal inspection of the chest Resp Effort & Inspection: normal respiratory effort and able to speak in complete sentences Cardio Rate: regular rate GI Inspection: Yes normal to inspection General: Yes no CVA tenderness Back/Spine/Pelvis Back: no CVA tenderness Skin General skin exam: no rashes or lesions noted Neuro General: patient oriented x3 Extrem General: Yes normal to inspection Psych Appearance: grossly normal and well kempt Mental Status: mental status grossly normal Speech and movement: Normal speech and movement present and Clear speech present Affect: normal affect Attitude: cooperative Thought process: Normal thought process present Thought content: Normal thought content present Insight: Good insight present (Psych) Judgement: Good judgement present (Psych) Results AMB Urinalysis, Automated UA Leukoctes 0 Jackeline/uL Last Edit by Betfair on 04/23/23 09:02 UA Nitrite Negative Last Edit by Betfair on 04/23/23 09:02 UA Urobilinogen 0.2 mg/dL Last Edit by Betfair on 04/23/23 09:02 UA Protein 15 mg/dL Last Edit by Betfair on 04/23/23 09:02 UA pH 6.5 Last Edit by Betfair on 04/23/23 09:02 UA Blood 10 Fahad/uL Last Edit by Betfair on 04/23/23 09:02 UA Specific Natalia 1.020 Last Edit by Betfair on 04/23/23 09:02 UA Ketone Negative Last Edit by Betfair on 04/23/23 09:02 UA Bilirubin 0 mg/dL Last Edit by Betfair on 04/23/23 09:02 UA Glucose 0 mg/dL Last Edit by Betfair on 04/23/23 09:02 Results Reviewed Results Reviewed: Laboratory Last Values Urine pH (Auto) 6.5 04/23/23 08:35 Specific Natalia (Auto) 1.020 04/23/23 08:35 Urine Protein (Auto) 15 mg/dL 04/23/23 08:35 Glucose (UA)(Auto) 0 mg/dL 04/23/23 08:35 Urine Ketones (Auto) Negative 04/23/23 08:35 Urine Blood (Auto) 10 Fahad/uL 04/23/23 08:35 Urine Nitrite (Auto) Negative 04/23/23 08:35 Urine Bilirubin (Auto) 0 mg/dL 04/23/23 08:35 Urine Urobilinogen (Auto) 0.2 mg/dL 04/23/23 08:35 Leukocyte Esterase (Auto) 0 Jackeline/uL 04/23/23 08:35 Date of Service: 04/11/23 EXAMINATION: US RETROPERITONEAL LIMITED (RENAL ONLY) FINDINGS: RIGHT KIDNEY: 10.4 x 5.8 x 6.0 cm (SAG x AP x TRV). The kidney is normal in size, contour, and echogenicity. Renal cortical thickness is normal. No focal parenchymal lesions or hydronephrosis. 6 mm nonobstructing lower pole renal stone from prior. LEFT KIDNEY: 11.5 x 5.1 x 5.8 cm (SAG x AP x TRV). The kidney is normal in size, contour, and echogenicity. Renal cortical thickness is normal. No calculi or focal parenchymal lesions. Pelviectasis without ben hydronephrosis new from prior. IMPRESSION: 1. A 6 mm nonobstructing right lower pole renal stone from prior. 2. Left renal pelviectasis without ben hydronephrosis new from prior. Assessment & Plan Assessment & Plan (1) Kidney stones: Code(s): N20.0 - Calculus of kidney Plan In office urinalysis results reviewed with the patient today; as noted above Recent retroperitoneal ultrasound results reviewed with the patient today; as noted above. Discussed further nephrolithiasis workup with 24 hour urine collection, labs, and CT KUB; however patient declines at this time. Discussed, educated, and stressed the importance of continuing to drink plenty of water daily. Continue vitamin B6 as discussed and prescribed; refill prescription provided Continue adding 1 oz of lemon juice to water daily. Patient otherwise denies any urological issues or concerns at this time. Will obtain KUB and ultrasound prior to next follow-up appointment Follow-up in 3 months with imaging to be completed prior; or sooner with any issues, concerns, and or questions Orders: Orders XR KUB 3 Months N20.0 - Calculus of kidney AMB Urinalysis Automated Today Z13.9 - Encounter for screening, unspecified US renal BI 3 Months N20.0 - Calculus of kidney Medications: New pyridoxine (vitamin B6) 100 mg PO DAILY 90 tabs 1RF 90 days N20.0 - Calculus of kidney Patient Instructions: The patient had an opportunity to ask questions regarding the treatment plan. All questions were answered. Physical exam, labs, and imaging were discussed and reviewed in detail. As well as risks, benefits, and discussion of treatment choices. No major barriers to understanding were identified. The patient expressed understanding and agreement with the above treatment plan. The patient was made aware they should contact our office by phone for worsening of their current condition, the appearance of new symptoms, or with any questions or concerns. Compliance is encouraged with any medications and follow up testing that is ordered. It is a privilege to be allowed the opportunity to participate in? your urological care.? Again, if you have any questions or concerns If you have any questions or concerns please do not hesitate to contact me. The office is [phone]. This note is constructed using voice recognition software. While every effort has been made to ensure accuracy dielectric embossing machine operator errors may have been included. Yours sincerely, ALTAF Lino Coding Level of Care Code Est Pt Level 3 (80670) Diagnoses Kidney stones N20.0
== END 2023-04-23 09:22 | disposition home or self-care (01) ==
PROVIDERS: PCP Internal Medicine; Visit Provider Nurse Practitioner Family
DX: N20.0 Calculus of kidney (principal); Z13.9 Encounter for screening, unspecified
CPT/HCPCS: 99213

== ENCOUNTER → 2023-04-23 08:25 | Outpatient (BNVA) | payer OTHER, SELFPAY | PROVIDERS: PCP Internal Medicine; Visit Provider Nurse Practitioner Family | DX: N20.0 Calculus of kidney (principal) | CPT/HCPCS: 81003 ==